=== PATIENT | female | born 1955 | race Caucasian/White ===

== ENCOUNTER 2025-03-15 00:15 | Emergency (ER) | payer MEDICARE, OTHER ==
[~2025-03-15] VITALS: Ht 165.1 cm; Wt 81.6 kg
[2025-03-15] MEDS: DOPamine 1600MCG/ML D5W 250 ML IV ONE ×2 (00:44→05:13)
[2025-03-15] MEDS: LORazepam 2MG/ML-1ML VIAL IV ONE (00:46)
--- NOTE | 2025-03-15 00:47 | ED.PDOC ---
HPI Comments 69-year-old female who came to ER via EMS for altered level of consciousness. Per EMS, patient picked up at home, where for the past hour, patient has been having generalized weakness, nausea and vomiting. Upon arrival paramedics, patient was acting altered and confused, blood sugar of 305, systolic blood pressure of 80s, bradycardic at 25, and the EKG revealed third-degree heart block. No chest pain was noted. Patient was placed on external pacemaker, heart rate improved to 70s. 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 Family History Family History: Pt Confused Social History Smoker: Pt Confused Alcohol: Pt Confused Drugs: Pt Confused Lives In: Home Unable to Obtain due to: Altered Mental Status Physical Exam General Appearance: Moderate Distress, Other (Patient acting confused and disoriented) HEENT: Normal ENT Inspection, Pharynx Normal, TMs Normal, Other (Hematoma left forehead) Neck: Full Range of Motion, Non-Tender, Normal, Normal Inspection Respiratory: Chest Non-Tender, Lungs Clear, No Accessory Muscle Use, No Respiratory Distress, Normal Breath Sounds Cardiovascular: Bradycardia, No Edema, No JVD, No Murmur, No Gallop, Normal Peripheral Pulses Breast Exam: Deferred Gastrointestinal: No Organomegaly, Non Tender, No Pulsatile Mass, Normal Bowel Sounds, Soft Genitalia: Deferred Pelvic: Deferred Rectal: Deferred Extremities: No calf tenderness, Normal capillary refill, Normal inspection, Normal range of motion, Non-tender, No pedal edema Musculoskeletal : Apperance: Normal Neurologic: Alert, product design engineer II-XII nml as Tested, No Motor Deficits, Normal Affect, Normal Mood, No Sensory Deficits Cerebellar Function: Normal Reflexes: Normal Skin: Dry, Normal Color, Warm Lymphatic: No Adenopathy Was a procedure done? Was a procedure done?: No CP Differential Dx Differential Diagnosis: A-fib, A-Flutter, Angina, Anxiety / Panic Attack, Atrial Dysrhythmia, AV Block 1st Degree, AV Block 2nd Degree, AV Block 3rd Degree, Electrolyte Disorder, Heart Failure, Hyperthyroidism, Hypoxia, MAT, IA, PAC's, WPW, Other (Altered level of consciousness) X-Ray, Labs, Meds, VS Vital Signs Date Time Temp Pulse Resp B/P (MAP) Pulse Ox O2 Delivery O2 Flow Rate FiO2 03/15/25 02:00 104/03/15/25 02:00 10403/15/25 01:20 66/20 03/15/25 01:10 85/43 03/15/25 01:05 95/41 03/15/25 00:58 76 15 82/35 (51) 95 03/15/25 00:55 82/35 03/15/25 00:48 97.2 70 13 89/43 (58) 99 97.2 03/15/25 00:44 89/43 03/15/25 00:26 70 13 89/43 (58) 99 03/15/25 00:15 98.8 70 22 80/40 97 98.8 Lab Test 03/15/25 02:20 03/15/25 01:39 03/15/25 00:35 Range/Units White Blood Count 17.3 H 4.4-10.8 10^3/uL Red Blood Count 4.65 4.0-5.20 10^6/uL Hemoglobin 14.3 12.2-16.2 g/dL Hematocrit 43.9 36.0-46.0 % Mean Corpuscular Volume 94.5 80.0-100.0 fL Mean Corpuscular Hemoglobin 30.7 28.0-32.0 pg Mean Corpuscular Hemoglobin Concent 32.5 32.0-36.0 g/dL Red Cell Distribution Width 14.6 H 11.8-14.3 % Platelet Count 261 140-450 10^3/uL Mean Platelet Volume 6.9 6.9-10.8 fL Neutrophils (%) (Auto) 83.8 H 37.0-80.0 % Lymphocytes (%) (Auto) 10.9 10.0-50.0 % Monocytes (%) (Auto) 4.8 0.0-12.0 % Eosinophils (%) (Auto) 0.2 0.0-7.0 % Basophils (%) (Auto) 0.3 0.0-2.0 % Neutrophils # (Auto) 14.5 H 1.6-8.6 10 ^3/uL Lymphocytes # (Auto) 1.9 0.4-5.4 10 ^3/uL Monocytes # (Auto) 0.8 0-1.3 10 ^3/uL Eosinophils # (Auto) 0 0-0.8 10 ^3/uL Basophils # (Auto) 0 0-0.2 10 ^3/uL Nucleated Red Blood Cells 0.0 % Prothrombin Time 10.6 9.3-11.8 sec Prothrombin Time INR 1.00 0.9-1.15 Activated Partial Thromboplast Time 21.8 L 24.5-34.5 SEC Troponin I High Sensitivity 10 7 </=34 ng/L Sodium Level 140 136-145 mmol/L Potassium Level 3.6 3.5-5.1 mmol/L Chloride Level 105 98-107 mmol/L Carbon Dioxide Level 17 L 20-31 mmol/L Anion Gap 18 H 5-15 Blood Urea Nitrogen 13 9-23 mg/dL Creatinine 1.30 H 0.550-1.02 mg/dL Glomerular Filtration Rate Calc 44 >90 mL/min BUN/Creatinine Ratio 10.0 10.0-20.0 Serum Glucose 322 H 74-106 mg/dL Calcium Level 9.4 8.7-10.4 mg/dL Current Medications Medications (Trade) Dose Ordered Sig/Omar Route Start Time Stop Time Status Last Admin Dopamine HCl/ Dextrose 250 ml @ 13.125 mls/ hr Q19H3M ONCE IV 03/15/25 00:30 03/15/25 19:32 03/15/25 00:44 Lorazepam (Ativan Inj) 1 mg ONCE ONCE IV 03/15/25 00:30 03/15/25 00:31 DC 03/15/25 00:46 Ondansetron HCl (Zofran) 4 mg ONCE ONCE IV 03/15/25 02:00 03/15/25 02:02 DC 03/15/25 02:11 CHEST RADIOGRAPH Indication: bradycardia Technique: 1 view Comparison: None FINDINGS: Patient is rotated. Lines and Tubes: External leads and overlying defibrillator. Lungs/Pleura: No evidence of focal consolidation or pleural abnormality. Perihilar interstitial opacities. Cardiomediastinum: Heart size appears within normal limits for technique. Central pulmonary artery enlargement. Other: No acute osseous abnormality. IMPRESSION: 1. Interstitial opacities suggesting edema or atypical infection. Time of 1ST Reevaluation: 00:41 Reevaluation 1ST: Unchanged Reevaluation 2ND: Improved Patient Education/Counseling: Other (Patient confused and disoriented) Family Education/Counseling: No Family Present SEPSIS Sepsis Screen Physician Orders Dopamine 1600mcg/Ml D5w (03/15/25 00:30) Chest Xray 1 View (03/15/25 00:20) Continuous Ekg Monitoring 08,12,16,20,00,04 (03/15/25 00:20) Electrocardigram (03/15/25 03:20) Head Without Contrast (03/15/25 02:00) Magnesium (03/15/25 02:47) Vital Signs Date Time Temp Pulse Resp B/P (MAP) Pulse Ox O2 Delivery O2 Flow Rate FiO2 03/15/25 02:00 104/03/15/25 02:00 104/03/15/25 01:20 66/20 03/15/25 01:10 85/43 03/15/25 01:05 95/41 03/15/25 00:58 76 15 82/35 (51) 95 03/15/25 00:55 82/35 03/15/25 00:48 97.2 70 13 89/43 (58) 99 97.2 03/15/25 00:44 89/43 03/15/25 00:26 70 13 89/43 (58) 99 03/15/25 00:15 98.8 70 22 80/40 97 98.8 Laboratory Tests Test 03/15/25 02:20 White Blood Count 17.3 10^3/uL (4.4-10.8) H Medications Medications Dose Ordered Sig/Omar Route Start Time Stop Time Status Last Admin Dose Admin Dopamine HCl/ Dextrose 250 ml @ 13.125 mls/ hr Q19H3M ONCE IV 03/15/25 00:30 03/15/25 19:32 03/15/25 00:44 Lorazepam 1 mg ONCE ONCE IV 03/15/25 00:30 03/15/25 00:31 DC 03/15/25 00:46 Ondansetron HCl 4 mg ONCE ONCE IV 03/15/25 02:00 03/15/25 02:02 DC 03/15/25 02:11 Departure 1 Departure Time of Disposition: 02:57 Impression: Primary Impression: Heart block AV complete Additional Impressions: Traumatic hematoma of forehead Qualified Codes: S00.83XA - Contusion of other part of head, initial encounter Encephalopathy Qualified Codes: G93.40 - Encephalopathy, unspecified Hypotension Qualified Codes: I95.0 - Idiopathic hypotension Disposition: ADMITTED INPATIENT Admit to: ICU Condition: Critical Critical Care Note Critical Care Time?: Yes (>90min-critical care time only) Critical care comment: Due to concerns for patients condition deteriorating, the care required my highest level of attention and readiness to intervene. I assessed the patient, reviewed the medical records, ordered the appropriate tests and treatments, then reassessed for results and responsiveness. I communicated with medical personnel and consultants and formulated a plan of care. Total critical care time excludes any procedures PATIENT PRESENTS ALTERED IN THIRD-DEGREE HEART BLOCK. SHE HAS CAPTURE IN WITH A TRANSCUTANEOUS PACEMAKER. DUE TO THE ACUTE CONDITION I REASSESSED THE PATIENT FREQUENTLY. HE HAS PATIENT WAS ALSO HYPOTENSIVE THEREFORE DOPAMINE WAS STARTED TO HELP IMPROVE THE HEART RATE WELL THE BLOOD PRESSURE. IN ADDITION PATIENT HAS EVIDENCE OF A LARGE HEMATOMA ON THE LEFT FOREHEAD CT WAS DONE WHICH DID NOT SHOW ANY BLEED. ALSO PATIENT IS A CONFUSED SHE MAY HAVE HAD SOME HYPOXIC INJURIES LEADING TO ENCEPHALOPATHY DUE TO THE HEART BLOCK. THIS MAY CAUSE DECREASE IN PERFUSION OF THE BRAIN IF THE RATE WAS SIGNIFICANTLY LOWERED AND BLOOD PRESSURE WAS SIGNIFICANTLY LOWERED. ON THE DOPAMINE AND THE TRANSCUTANEOUS PACE MAKER WHICH IS CAPTURING WELL, PATIENT'S CONDITION HAS STABILIZED. HER BLOOD PRESSURE HEART RATE ARE ALL NOW STABILIZED. I DID CONSULT DR. PATEL. WHO WILL SEE THE PATIENT TO PERFORM A PACEMAKER PLACEMENT. PATIENT IS NOT ON ANY BETA-DEJUAN OR CALCIUM CHANNEL DEJUAN. Stability Stability form required: No Heart Score Heart Score: Heart Score Response (Comments) Value History Moderate Suspicious 1 EKG Repolarization Disturb 1 Age >65 2 Risk Factors >3 or Hx ASHD 2 Troponin Normal limit 0 Total 6 I personally scribed for SIRI BARBOSA MD ([email or web address]) on 03/15/25 at 00:47. Electronically submitted by Rah Sultana ([facility]). I personally scribed for SIRI BARBOSA MD ([facility]) on 03/15/25 at 01:36. Electronically submitted by Rah Sultana ([facility]). I personally scribed for SIRI BARBOSA MD ([facility]) on 03/15/25 at 02:01. Electronically submitted by Rah Sultana ([facility]). I personally scribed for SIRI BARBOSA MD ([facility]) on 03/15/25 at 02:02. Electronically submitted by Rah Sultana ([facility]). SIRI BARBOSA MD Mar 15, 2025 00:47
[2025-03-15 00:48] VITALS: TEMP 97.2
[2025-03-15 00:56] LABS: Chloride 105 mmol/L (98-107); Potassium 3.6 mmol/L (3.5-5.1); Sodium 140 mmol/L (136-145)
[2025-03-15 00:57] LABS: Anion Gap 18 (5-15); Calcium 9.4 mg/dL (8.7-10.4)
[2025-03-15 01:02] LABS: BUN/Creatinine Ratio 10.0 (10.0-20.0); Blood Urea Nitrogen 13 mg/dL (9-23)
--- NOTE | 2025-03-15 01:03 | DVH ---
CHEST RADIOGRAPH Indication: bradycardia Technique: 1 view Comparison: None FINDINGS: Patient is rotated. Lines and Tubes: External leads and overlying defibrillator. Lungs/Pleura: No evidence of focal consolidation or pleural abnormality. Perihilar interstitial opac ities. Cardiomediastinum: Heart size appears within normal limits for technique. Central pulmonary artery e nlargement. Other: No acute osseous abnormality. IMPRESSION: 1. Interstitial opacities suggesting edema or atypical infection.
[2025-03-15 01:27] LABS: Carbon Dioxide 17 mmol/L (20-31); Glucose 322 mg/dL (74-106)
[2025-03-15] MEDS: ONDANSETRON HCL 4 MG/2 ML VIAL IV ONE (02:11)
[2025-03-15 02:13] LABS: INR 1.0 (0.9-1.15); Partial Thromboplastin Time 21.8 SEC (24.5-34.5); Prothrombin Time 10.6 sec (9.3-11.8)
--- NOTE | 2025-03-15 02:17 | ECG ---
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
[2025-03-15 02:34] LABS: Hematocrit 43.9 % (36.0-46.0); Hemoglobin 14.3 g/dL (12.2-16.2); Mean Corpuscular Hemoglobin 30.7 pg (28.0-32.0); Mean Corpuscular Volume 94.5 fL (80.0-100.0); Nucleated Red Blood Cells % 0.0 %
--- NOTE | 2025-03-15 02:38 | ECG ---
[facility] Test Date: 2025-03-15 Test Time: 02:37:18 Pat Name: KAYLA PATEL Department: Room: Gender: F Equal Opportunity Assistant: SHIMON : 1955 Requested By: SIRI BARBOSA Order Number: [id number] Reading MD: Tho Gustafson Measurements Intervals [place] Rate: 50 P: 0 NE: 0 QRS: -44 QRSD: 151 T: 67 QT: 556 QTc: 508 Interpretive Statements Complete AV block, third-degree AV block with AV dissociation. Junctional escape rhythm Left bundle branch block Electronically Signed On 03-19-2025 9:29:50 PDT by Tho Gustafson Please click the below link to view image of tracing.
--- NOTE | 2025-03-15 03:15 | DVH ---
EXAM: CT HEAD WITHOUT CONTRAST INDICATION: HEMATOMA TECHNIQUE: CT of the head without intravenous contrast. Radiation Dose : 1. Head: CT Dose: CTDI volume is 70.18 mGy. Dose-length product is 1.71 mGy*cm The dose indicators for CT are the volume Computed Tomography (CT) Dose Index (CTDIvol) and the Dose Length Product (DLP), and are measured in units of mGy and mGy-cm, respectively. These indicators are not patient dose, but values generated from the CT scanner acquisition factors. The report includes radiation exposure data for exposures received during this examination. COMPARISON: None FINDINGS: Acute trace left frontal convexity subdural hematoma measures approximately 2 mm. There is no evidence of acute mass effect, midline shift, herniation or hydrocephalus. Chronic appearing bilateral basal ganglia and cerebellar lacunar infarcts. Moderate to severe selecti ve cerebellar atrophy. Increased prominence of the ventricles, sulci and cisterns is consistent with a sequelae atrophic cor tical volume loss. The west-white differentiation is intact. Moderate diffuse confluent periventricular and subcortical white matter hypoattenuation is nonspecifi c but may be related to small vessel ischemic disease. The visualized paranasal sinuses and mastoid air cells are clear. Moderate left frontal scalp soft tissue swelling and hematoma. The surrounding soft tissues and osseo us structures are otherwise unremarkable. IMPRESSION: 1. Acute trace left frontal convexity subdural hematoma. 2. Moderate to severe cerebellar atrophy. 3. Moderate diffuse confluent periventricular and subcortical white matter hypoattenuation is nonspec ific but may be related to small vessel ischemic disease. 4. Chronic appearing bilateral basal ganglia and cerebellar lacunar infarcts. 5. Moderate left frontal scalp soft tissue swelling and hematoma. Critical Result: Trace left frontal convexity subdural hematoma Findings discussed with SIRI BARBOSA at 03/15/2025 03:09 AM, and acknowledged receipt and understandin g of the findings. Radiation optimization: All CT scans at this facility use at least one of these dose optimization mell hniques: automated exposure control mA and/or kV adjustment per patient size (includes targeted exam s where dose is matched to clinical indication) or iterative reconstruction.
[2025-03-15] MEDS: levETIRAcetam 1000 mg/100ml 100 ML IV ONE (03:54)
[2025-03-15] MEDS: NOREPINEPHRINE 8 MG/250ML KIT 250 ML IV SCH (04:16)
[2025-03-15 05:00] VITALS: BP 115/43; PULSE 70; RESP 16; O2SAT 96
== END 2025-03-15 03:12 | disposition short-term general hospital (02) ==
LOC: ER 00:15 → EDBD 00:15 → ER 03:12
DX: S00.83XA Contusion of other part of head, initial encounter (principal); I44.2 Atrioventricular block, complete; G93.40 Encephalopathy, unspecified; I95.0 Idiopathic hypotension; Z88.5 Allergy status to narcotic agent; F17.200 Nicotine dependence, unspecified, uncomplicated; Z79.899 Other long term (current) drug therapy; X58.XXXA Exposure to other specified factors, initial encounter; Y93.89 Activity, other specified; Y92.89 Other specified places as the place of occurrence of the external cause; Y99.8 Other external cause status
CPT/HCPCS: 36415; 70450; 71045; 80048; 82947; 83735; 84484; 85025; 85610; 85730; 93005; 96374; 96375; 99291; 99292; J1265; J1953; J2060; J2405; 82962; 96365

== ENCOUNTER 2025-04-03 17:54 | Emergency (ER) | payer MEDICARE ==
[~2025-04-03] VITALS: Ht 162.6 cm; Wt 73.0 kg
[2025-04-03 18:15] VITALS: PULSE 83; RESP 14; O2SAT 96
--- NOTE | 2025-04-03 18:27 | ED.PDOC ---
History of Present Illness HPI Comments 51-year-old female who came to ER due to generalized weakness. Patient was seen here last March 15 diagnosed with 1. Heart block AV complete, 2. Traumatic hematoma of forehead, 3. Encephalopathy, 4. Hypotension, 5. Subdural hematoma. Patient was transferred to [facility] for continuing management. Today, patient states she felt generally weak, imbalance, and felt that her left hand to be numb. 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 Family History Family History: Pt Confused Social History Smoker: Non-Smoker Alcohol: Denies ETOH Use Drugs: Denies Drug Use Lives In: Home Constitutional: reports: weakness; denies: chills, diaphoresis, fatigue, fever, malaise, sweats, others EENTM: denies: blurred vision, double vision, ear bleeding, ear discharge, ear drainage, ear pain, ear ringing, eye pain, eye redness, hearing loss, mouth pain, mouth swelling, nasal discharge, nose bleeding, nose congestion, nose pain, photophobia, tearing, throat pain, throat swelling, voice changes, others Respiratory: reports: cough; denies: hemoptysis, orthopnea, SOB at rest, shortness of breath, SOB with excertion, stridor, wheezing, others Cardiovascular: denies: chest pain, dizzy spells, diaphoresis, Dyspnea on exertion, edema, irregular heart beat, left arm pain, lightheadedness, palpitations, PND, syncope, others Gastrointestinal: denies: abdomen distended, abdominal pain, blood streaked bowels, constipated, diarrhea, dysphagia, difficulty swallowing, hematemesis, melena, nausea, poor appetite, poor fluid intake, rectal bleeding, rectal pain, vomiting, others Genitourinary: denies: abnormal vagina bleeding, burning, dyspareunia, dysuria, flank pain, frequency, hematuria, incontinence, pain, , vagina discharge, urgency, others Neurological: denies: dizziness, fainting, headache, left sided numbness, left sided weakness, numbness, paresthesia, pre-existing deficit, right sided numbness, right sided weakness, seizure, speech problems, tingling, tremors, weakness, others Musculoskeletal: denies: back pain, gout, joint pain, joint swelling, muscle pain, muscle stiffness, neck pain, others Integumetry: denies: bruises, change in color, change in hair/nails, dryness, laceration, lesions, lumps, rash, wounds, others Allergic/Immunocompromised: denies: Difficulty Healing, Frequent Infections, Hives, Itching, others Hematologic/Lymphatic: denies: anemia, blood clots, easy bleeding, easy bruising, swollen glands, others Endocrine: denies: excessive hunger, excessive sweating, excessive thirst, excessive urination, flushing, intolerance to cold, intolerance to heat, unexplained weight gain, unexplained weight loss, others Psychiatric: denies: anxiety, bipolar disorder, depression, hopeless, panic disorder, schizophrenia, sleepless, suicidal, others Physical Exam General Appearance: No Apparent Distress, Normal HEENT: Normal ENT Inspection, Pharynx Normal, TMs Normal Neck: Full Range of Motion, Non-Tender, Normal, Normal Inspection Respiratory: Chest Non-Tender, Lungs Clear, No Accessory Muscle Use, No Respiratory Distress, Normal Breath Sounds Cardiovascular: No Edema, No JVD, No Murmur, No Gallop, Normal Peripheral Pulses, Regular Rate/Rhythm Breast Exam: Deferred Gastrointestinal: No Organomegaly, Non Tender, No Pulsatile Mass, Normal Bowel Sounds, Soft Genitalia: Deferred Pelvic: Deferred Rectal: Deferred Extremities: No calf tenderness, Normal capillary refill, Normal inspection, Normal range of motion, Non-tender, No pedal edema Musculoskeletal : Apperance: Normal Neurologic: Alert, contract negotiator II-XII nml as Tested, No Motor Deficits, Normal Affect, Normal Mood, No Sensory Deficits Cerebellar Function: Normal Reflexes: Normal Skin: Dry, Normal Color, Warm Lymphatic: No Adenopathy Was a procedure done? Was a procedure done?: No Differential Dx Considerations may include: Anemia, electrolyte imbalance, urinary tract infection, CVA, weakness X-Ray, Labs, Meds, VS Vital Signs Date Time Temp Pulse Resp B/P (MAP) Pulse Ox O2 Delivery O2 Flow Rate FiO2 04/03/25 18:15 83 14 104/43 (63) 96 04/03/25 18:15 83 14 96 Room Air* 0 21 04/03/25 18:00 98.3 90 18 106/69 95 98.3 04/03/25 17:59 88 Lab Test 04/03/25 20:02 04/03/25 19:39 04/03/25 19:14 Range/Units Troponin I High Sensitivity Pending 4 </=34 ng/L Urine Color Light-yellow Yellow Urine Clarity Turbid H Clear Urine pH 5.5 5.0-9.0 Urine Specific [place] 1.022 1.001-1.035 Urine Protein Negative Negative Urine Ketones Negative Negative Urine Blood Negative Negative /uL Urine Nitrite Negative Negative Urine Bilirubin Negative Negative Urine Urobilinogen Normal Negative mg/dL Urine Leukocyte Esterase 2+ Negative /uL Urine RBC 7 0 - 4 /hpf Urine Microscopic WBC 5 0-5 /HPF Urine Squamous Epithelial Cells Few <5 /hpf Urine Bacteria Few H None Seen /hpf Urine Glucose Normal Normal mg/dL White Blood Count 6.6 4.4-10.8 10^3/uL Red Blood Count 4.35 4.0-5.20 10^6/uL Hemoglobin 13.4 12.2-16.2 g/dL Hematocrit 38.9 36.0-46.0 % Mean Corpuscular Volume 89.5 80.0-100.0 fL Mean Corpuscular Hemoglobin 30.9 28.0-32.0 pg Mean Corpuscular Hemoglobin Concent 34.5 32.0-36.0 g/dL Red Cell Distribution Width 14.0 11.8-14.3 % Platelet Count 313 140-450 10^3/uL Mean Platelet Volume 6.4 L 6.9-10.8 fL Neutrophils (%) (Auto) 64.6 37.0-80.0 % Lymphocytes (%) (Auto) 23.7 10.0-50.0 % Monocytes (%) (Auto) 6.7 0.0-12.0 % Eosinophils (%) (Auto) 2.6 0.0-7.0 % Basophils (%) (Auto) 2.4 H 0.0-2.0 % Neutrophils # (Auto) 4.3 1.6-8.6 10 ^3/uL Lymphocytes # (Auto) 1.6 0.4-5.4 10 ^3/uL Monocytes # (Auto) 0.4 0-1.3 10 ^3/uL Eosinophils # (Auto) 0.2 0-0.8 10 ^3/uL Basophils # (Auto) 0.2 0-0.2 10 ^3/uL Nucleated Red Blood Cells 0.0 % Sodium Level Pending Potassium Level Pending Chloride Level Pending Carbon Dioxide Level Pending Anion Gap Pending Blood Urea Nitrogen Pending Creatinine Pending Glomerular Filtration Rate Calc Pending BUN/Creatinine Ratio Pending Serum Glucose Pending Lactic Acid Level 2.3 *H 0.4-2.0 mmol/L Calcium Level Pending Magnesium Level Pending Total Bilirubin Pending Aspartate Amino Transferase (AST) Pending Alanine Aminotransferase (ALT) Pending Alkaline Phosphatase Pending Total Protein Pending Albumin Pending Time of 1ST Reevaluation: 18:32 Reevaluation 1ST: Unchanged Patient Education/Counseling: Diagnosis, Treatment Family Education/Counseling: No Family Present SEPSIS Sepsis Screen Date sepsis recognized/suspect: Apr 03, 2025 Time Sepsis recognized/suspect: 1800 Recent Procedure: No On Antibiotic Therapy: No Respiratory Rate >20: No Heart Rate >90: No Temp<36 C (96.8 F) or >38.3 C: No SBP <90 or MAP <65 mmHG: No New Acute Mental Status Change: No Is the patient on CPAP, BIPAP,: No Physician Orders Electrocardigram (04/03/25 18:21) Comprehensive Metabolic Panel (04/03/25 18:26) Blood Culture (04/03/25 18:26) Magnesium (04/03/25 18:26) Chest Portable (04/03/25 18:26) Head Without Contrast (04/03/25 18:26) Troponin-I Hs (04/03/25 19:26) Troponin-I Hs (04/03/25 21:26) Straightcath If Unable To Void (04/03/25 19:37) Sodium Chloride 0.9% (04/03/25 20:15) Ceftriaxone 2gm/50ml (Rocephin 2gm/50ml) (04/03/25 20:15) Vital Signs Date Time Temp Pulse Resp B/P (MAP) Pulse Ox O2 Delivery O2 Flow Rate FiO2 04/03/25 18:15 83 14 104/43 (63) 96 04/03/25 18:15 83 14 96 Room Air* 0 21 04/03/25 18:00 98.3 90 18 106/69 95 98.3 04/03/25 17:59 88 Laboratory Tests Test 04/03/25 19:14 Lactic Acid Level 2.3 mmol/L (0.4-2.0) *H White Blood Count 6.6 10^3/uL (4.4-10.8) Departure 1 Departure Time of Disposition: 20:14 Impression: Primary Impression: Urinary tract infection Additional Impressions: Pyelonephritis Dehydration Metabolic encephalopathy Disposition: ADMITTED INPATIENT Admit to: Med Surg Condition: Guarded Discharged With: Self Comments 69-year-old female with history of recent pacemaker placement now too weak to get around at home. Urinalysis shows a UTI. I suspect some dehydration. Patient was given IV fluids and IV Rocephin antibiotics. Patient will need to be admitted for supportive care and further workup. Critical Care Note Critical Care Time?: No Stability Stability form required: No Heart Score Heart Score: Heart Score Response (Comments) Value History N/A 0 EKG N/A 0 Age N/A 0 Risk Factors N/A 0 Troponin N/A 0 Total 0 I personally scribed for ROSALIO IVY MD ([email or web address]) on 04/03/25 at 18:26. Electronically submitted by Rah Sultana ([email or web address]). I personally scribed for ROSALIO IVY MD ([email or web address]) on 04/03/25 at 18:33. Electronically submitted by Rah Sultana ([email or web address]). ROSALIO IVY MD Apr 03, 2025 18:26
--- NOTE | 2025-04-03 19:08 | DVH ---
CT HEAD WITHOUT CONTRAST INDICATION: gen weak h/o SDH EXAM DATE: 04/03/2025 06:37 PM COMPARISON: CT HEAD WITHOUT CONTRAST on DOS: 03/15/25 RADIATION DOSE: CTDIvol: 59.77 mGy, DLP: 1013.43 mGy*cm PROCEDURE: CT scans of the head were obtained from the vertex to the skull base. Sagittal and coronal reconstructions were provided. All CT scans at this medical facility are performed using dose modulation techniques as appropriate t o a performed exam including the following: Automated exposure control was utilized; adjustment of th e MA and/or KV according to patient size; and use of iterative reconstruction technique. FINDINGS: Motion artifact degrades fine detail. No acute territorial infarct, intracranial hemorrhage, or mass effect. There are global involutional changes with compensatory prominence of the ventricles and sulci. There is prominent cerebellar atrop hy. Patchy periventricular and subcortical white matter hypoattenuation is nonspecific but may be rel ated to small vessel ischemic disease. The orbits are normal. The paranasal sinuses and mastoid air cells are clear. The osseous structures are unremarkable. IMPRESSION: 1. No acute territorial infarct, intracranial hemorrhage, or mass effect. 2. Age-related involutional changes. Chronic microvascular changes. 3. If clinical symptoms persist, MRI may be beneficial in further evaluation.
--- NOTE | 2025-04-03 19:12 | DVH ---
CHEST RADIOGRAPH Indication: SOB Technique: Single frontal view of the chest was obtained COMPARISON: XY CHEST XRAY 1 VIEW on DOS: 03/15/25 FINDINGS: Lines and Tubes: None Lungs: Clear Pleura: No effusion. No pneumothorax. Cardiomediastinal contours: Unremarkable Bones: Unremarkable IMPRESSION: 1. No acute disease.
[2025-04-03 19:30] VITALS: PULSE 99; RESP 15; TEMP 98.6; O2SAT 91
[2025-04-03 19:32] LABS: Hematocrit 38.9 % (36.0-46.0); Hemoglobin 13.4 g/dL (12.2-16.2); Mean Corpuscular Hemoglobin 30.9 pg (28.0-32.0); Mean Corpuscular Volume 89.5 fL (80.0-100.0); Nucleated Red Blood Cells % 0.0 %
[2025-04-03 19:53] LABS: Urine Protein, UAD Negative (Negative)
[2025-04-03 19:57] LABS: Lactic Acid w/Reflex 2.3 mmol/L (0.4-2.0)
[2025-04-03 20:38] LABS: Alanine Aminotransferase 24 U/L (7-40); Albumin 4.0 g/dL (3.2-4.8); Alkaline Phosphatase 99 U/L (46-116); Anion Gap 14 (5-15); BUN/Creatinine Ratio 11.5 (10.0-20.0); Bilirubin, Total 0.4 mg/dL (0.2-1.0); Blood Urea Nitrogen 9 mg/dL (9-23); Calcium 9.3 mg/dL (8.7-10.4); Carbon Dioxide 23 mmol/L (20-31); Chloride 107 mmol/L (98-107); Magnesium 1.6 mg/dL (1.6-2.6); Potassium 3.9 mmol/L (3.5-5.1); Sodium 144 mmol/L (136-145); Total Protein 7.2 g/dL (5.7-8.2)
[2025-04-03 20:40] LABS: Glucose 137 mg/dL (74-106)
[2025-04-03] MEDS: SODIUM CHLORIDE 0.9% 500 ML IV ONE (21:36)
[2025-04-03] MEDS: SODIUM CHLORIDE 0.9% 500 ML IVB ONE (21:36)
[2025-04-03 22:50] VITALS: BP 104/44; PULSE 79; RESP 18; O2SAT 93
--- NOTE | 2025-04-04 07:57 | ECG ---
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
== END 2025-04-03 22:13 | disposition home or self-care (01) ==
LOC: EDSEX 17:54 → EDBD 17:54 → ER 17:56
DX: R53.1 Weakness (principal); N39.0 Urinary tract infection, site not specified; N12 Tubulo-interstitial nephritis, not specified as acute or chronic; G93.41 Metabolic encephalopathy; E86.0 Dehydration; E11.9 Type 2 diabetes mellitus without complications; I10 Essential (primary) hypertension; E78.5 Hyperlipidemia, unspecified; Z95.0 Presence of cardiac pacemaker
CPT/HCPCS: 36415; 70450; 71045; 80053; 81001; 83605; 83735; 84484; 85025; 87040; 93005; 96365; 99285; J0696; J7040